=== PATIENT | female | born 1965 | race Caucasian/White ===

== ENCOUNTER → 2016-08-31 | Outpatient (CLI) | payer OTHER ==
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
== END | disposition home or self-care (01) ==
LOC: KCIC MRI 15:53
DX: M47.892 Other spondylosis, cervical region (principal); D18.09 Hemangioma of other sites
CPT/HCPCS: 72141

== ENCOUNTER → 2019-01-24 | Day surgery (SDC) | payer BC ==
[~2019-01-24] MED LIST: LIDOCAINE 2% PF 5 ML VIAL. ONE; PROPOFOL 20 ML IV ONE
[2019-01-24] MEDS: IV RINGERS,LACTATED 1000ML 1,000 ML IV SCH (06:39)
[2019-01-24 07:44] VITALS: BP 140/77
--- NOTE | 2019-01-24 08:33 | CONS ---
DATE OF CONSULTATION: 01/24/2019 REFERRING PHYSICIAN: Dr. Pablo Montero. REASON FOR CONSULTATION: Colorectal screening. HISTORY OF PRESENT ILLNESS: A 53-year-old female with past medical history significant for cholecystectomy, is seen for a screening colon exam. Bowel habits are regular without diarrhea or constipation. There has been no melena and/or hematochezia. Weight and appetite are stable. There is no family history of colon cancer, but a history of polyps. She is otherwise not undergone previous screening studies and is here today. PAST MEDICAL HISTORY: Status post cholecystectomy. ALLERGIES: Antiemetics. MEDICATIONS: None. FAMILY HISTORY: Diabetes in her father, hypertension with her mother and father. [place] with her father and grandfather. SOCIAL HISTORY: She is a nonsmoker, previously smoked. Social drinker. PAST SURGICAL HISTORY: Status post cholecystectomy. REVIEW OF SYSTEMS: Per records. PHYSICAL EXAMINATION: GENERAL: Reveals a well-nourished, well-developed female, alert, cooperative, in no acute distress. VITAL SIGNS: Temperature 97, pulse 86, respirations 18. HEENT: Normocephalic and atraumatic head. Pupils and extraocular muscles are not tested. Sclerae are icteric. NECK: Supple. LUNGS: Clear. CARDIOVASCULAR: Reveals an S1, S2 without S3, S4 or appreciable murmur. ABDOMEN: Soft abdomen, normal bowel sounds without appreciable hepatosplenomegaly. EXTREMITIES: Reveals no cyanosis, clubbing or edema. IMPRESSION: Colorectal screening. Risks and benefits of procedure have been previously discussed including risk of hemorrhage and perforation and is willing to proceed at this time. I would like to thank you Pablo Montero for allowing us to consult and participate in this patient's care. EMILY CURTIS MD DR: AMANDA/mayra JOB#: [id number] / [id number]
== END ==
LOC: ENDOS 06:05
PROVIDERS: ATTEND Internal Medicine Gastroenterology
DX: Z12.11 Encounter for screening for malignant neoplasm of colon (principal); K64.0 First degree hemorrhoids; K63.89 Other specified diseases of intestine; Z90.49 Acquired absence of other specified parts of digestive tract; Z88.8 Allergy status to other drugs, medicaments and biological substances; Z87.891 Personal history of nicotine dependence; Z72.89 Other problems related to lifestyle
CPT/HCPCS: 45378; J2001; J2704